=== PATIENT | female | born 1950 | race Caucasian/White ===

== ENCOUNTER → 2024-11-06 11:53 | Outpatient (REF) | payer MEDICARE, SELFPAY | LOC: DHSLP 11:53 | PROVIDERS: ATTENDING PHYSICIAN Internal Medicine; FAMILY PHYSICIAN Physician Assistant Medical | DX: G47.33 Obstructive sleep apnea (adult) (pediatric) (principal) | CPT/HCPCS: 95810 ==

== ENCOUNTER → 2025-06-19 09:49 | Outpatient (REF) | payer MEDICARE, SELFPAY | LOC: HWWDC 09:49 | PROVIDERS: ATTENDING PHYSICIAN Physician Assistant Medical; FAMILY PHYSICIAN Family Medicine | DX: Z12.31 Encounter for screening mammogram for malignant neoplasm of breast (principal) | CPT/HCPCS: 77063; 77067 ==